=== PATIENT | female | born 1995 | race American Indian/Alaskan Native ===

== ENCOUNTER 2018-12-09 01:30 | Emergency (ER) | payer MEDICAID ==
[2018-12-09 01:38] VITALS: BP 94/63
[2018-12-09] MEDS ORDERED: LIDOCAINE VISCOUS 2% ONE (01:53)
[2018-12-09] MEDS ORDERED: LIDOCAINE VISCOUS 2% PO ONE (01:53)
[2018-12-09] MEDS ORDERED: LIDOCAINE VISCOUS 2% MM NR (02:15)
[2018-12-09] MEDS ORDERED: ATIVAN ONE (02:46)
[2018-12-09] MEDS ORDERED: TRIPLE ANTIBIOTIC TP ONE ×2 (02:55→02:58)
--- NOTE | 2018-12-09 03:22 | Emergency Department Report ---
HPI - General Chief Complaint: Allergic Reaction Time Seen by Provider: 12/09/18 02:01 - HPI HPI: 23-year-old female the emergency department complaining of having a vaginal discharge earlier today. She tried to treat herself with a over-the- counter intravaginal cream. States she put the cream on the inside of the vaginal canal and then began to have a burning sensation. She rushed to the bathroom to expel the cream with her hands in and and water. However, the symptoms did not resolve just reason for her visit this evening. She reports no vaginal bleeding, no diarrhea or constipation. She reports no dysuria. No fever, chills, sweats. No flow flank pain. No rashes appreciated. States she's had a yeast infection in the past. She thought it was a yeast infection, but she is unsure at this point ED Past Medical Hx - Past Medical History Previous Medical History?: No - Surgical History Past Surgical History?: Yes Additional Surgical History: x1 - Social History Smoking Status: Current Some Day Smoker Substance Use Type: None - Medications Home Medications: Home Medications Medication Instructions Recorded Confirmed Last Taken Type hydrOXYzine HCL [Atarax] 25 mg PO Q6HR PRN #20 tablet 12/09/18 Unknown Rx metroNIDAZOLE [Flagyl] 500 mg PO Q12HR #14 tab 12/09/18 Unknown Rx ED Review of Systems ROS: Stated complaint: VAGINAL INFECTION/SWELLING/IRRITATION Other details as noted in HPI Constitutional: denies: chills, fever Eyes: denies: eye pain, eye discharge, vision change ENT: denies: ear pain, throat pain Respiratory: denies: cough, shortness of breath, wheezing Cardiovascular: denies: chest pain, palpitations Endocrine: no symptoms reported Gastrointestinal: denies: abdominal pain, nausea, diarrhea Genitourinary: denies: urgency, dysuria, discharge Musculoskeletal: denies: back pain, joint swelling, arthralgia Skin: denies: rash, lesions Neurological: denies: headache, weakness, paresthesias Psychiatric: denies: anxiety, depression Hematological/Lymphatic: denies: easy bleeding, easy bruising Physical Exam - Physical Exam Vital Signs: Vital Signs 12/09/18 12/09/18 01:35 01:58 Temperature 98.4 F Pulse Rate 94 H Respiratory 18 18 Rate Blood Pressure 94/63 O2 Sat by Pulse 98 Oximetry ED Course Vital Signs 12/09/18 12/09/18 01:35 01:58 Temperature 98.4 F Pulse Rate 94 H Respiratory 18 18 Rate Blood Pressure 94/63 O2 Sat by Pulse 98 Oximetry ED Medical Decision Making - Medical Decision Making Discussed the findings of the laboratory data and we will treat accordingly along with a bacterial vaginal infection. If her symptoms temporary relief with some topical creams which worked well. Bacitracin continued utilization of the medication is needed at home Critical care attestation.: If time is entered above; I have spent that time in minutes in the direct care of this critically ill patient, excluding procedure time. ED Disposition Clinical Impression: Bacterial vaginosis, Medication reaction Disposition: - TO HOME OR SELFCARE Is pt being admited?: No Does the pt Need Aspirin: No Condition: Stable Instructions: Bacterial Vaginosis (ED) Prescriptions: hydrOXYzine HCL [Atarax] 25 mg PO Q6HR PRN #20 tablet PRN Reason: Itching metroNIDAZOLE [Flagyl] 500 mg PO Q12HR #14 tab Referrals: [facility] MD PREET [Primary Care Provider] - 3-5 Days Forms: STI Treatment and Prevention ED Female EXAM - General Limitations: No Limitations Head exam: Positive: atraumatic Respiratory exam: Positive: normal lung sounds bilaterally. Negative: wheezes Cardiovascular Exam: Positive: regular rate GI/Abdominal exam: Positive: soft. Negative: rebound, pulsatile mass Female exam: Positive: vulvar erythema, other (whitish yellowish discharge in the vaginal canal with some increased vaginal erythema, no fissures or abrasions. No tears noted. No active bleeding. No masses appreciated). Negative: vaginal laceration, tissue present in vagina, herpetic lesions, foreign body Extremities exam: Positive: normal inspection, full ROM Neurological exam: Positive: oriented X3, CN II-XII intact Psychiatric exam: Positive: normal affect
== END 2018-12-09 03:24 | disposition home or self-care (01) ==
LOC: ED 01:30
DX: N76.0 Acute vaginitis (principal); Z76.0 Encounter for issue of repeat prescription; F17.200 Nicotine dependence, unspecified, uncomplicated
CPT/HCPCS: 87210; 99283; A6250; J2060